=== PATIENT | female | born 1995 | race Caucasian/White ===

== ENCOUNTER 2016-09-08 21:56 | Emergency (ER) | payer BC, OTHER ==
[~2016-09-08] VITALS: Ht 167.6 cm; Wt 79.4 kg
[2016-09-08 22:02] VITALS: TEMP 36.9; Ht 167.6 cm; Wt 79.4 kg
[2016-09-08] MEDS ORDERED: XYLOCAINE 1%/SOD BICARB 20 ML VIAL INFIL ONE (22:15)
[2016-09-08] MEDS ORDERED: CITA20TA9 PO (22:34)
[2016-09-08] MEDS ORDERED: BSP15 PO (22:34)
--- NOTE | 2016-09-08 22:50 | EMERGENCY ROOM VISIT NOTE ---
History First contact with patient: 22:04 Chief Complaint: HAND PAIN/INJURY Stated Complaint: CUT History of Present Illness The patient is a 20 year old female who presents to the Emergency Room with complaints of a left palm laceration after accidentally stabbing her hand with a clean kitchen knife. The patient reports that she just cleaning dishes when this happened. She denies any active bleeding. She does report mild paresthesias of the index and long finger. She also reports that fat is now sticking out of the wound. The patient is [id number]. She rates her discomfort a 7 out of 10. Tetanus immunization is up-to-date. Review of Systems 6 system review was performed and was negative except for pertinent positives and negatives as indicated in history of present illness Past Medical/Surgical History Medical Problems: (1) No significant past medical history Surgical Problems: (1) No history of previous surgery Family History Unremarkable Social History Smoking Status: Never Smoker Alcohol Use: none Marital Status: single Occupation Status: [employer] student Current/Historical Medications Scheduled Buspirone HCl (Buspirone HCl), 15 MG PO BID Citalopram Hydrobromide (Celexa), 20 MG PO QAM Allergies Coded Allergies: No Known Allergies (Unverified , 09/08/16) Physical Exam Vital Signs Date Time Temp Pulse Resp B/P Pulse Ox O2 Delivery O2 Flow Rate FiO2 09/08/16 22:02 36.9 78 16 107/70 97 Room Air Physical Exam CONSTITUTIONAL: Healthy and well nourished. Alert and oriented X 3 with positive affect. HEENT: Normocephalic, atraumatic. Pupils equal, round and reactive. NECK: Full active range of motion without discomfort. MUSCULOSKELETAL: Examination of the left hand shows a 1 cm palmar laceration without active bleeding. There is no underlying edema or ecchymosis. The patient does have mild fat extrusion from the wound. The patient is able to flex and extend the index and long finger without discomfort. Capillary refill is less than 2 seconds. INTEGUMENTARY: No rash or other significant dermatologic conditions noted. NEUROLOGIC: Left hand and fingers are sensory intact. Medical Decision & Procedures Medications Administered Medications (Trade) Dose Ordered Sig/Gale Route Start Time Stop Time Status Last Admin Dose Admin Lidocaine HCl (Buffered Lidocaine 1% Inj) 20 ml ONE ONCE INFIL 09/08/16 22:15 09/08/16 22:16 DC 09/08/16 22:13 20 ML Procedure Laceration repair was performed under local anesthesia after receiving verbal consent from the patient. Using buffered 1% lidocaine without epinephrine, good local anesthesia was administered. The wound was then peripherally cleansed with iodine, then irrigated with normal saline. The wound was then approximated using 5-0 nylon simple interrupted sutures 3. Bacitracin dressing was applied. ED Course Patient history and physical exam were performed. Nurse's notes were reviewed. Laceration repair was performed under local anesthesia. The patient was provided additional verbal and written wound care instructions. Ice and elevation for swelling. Ibuprofen and Tylenol as needed for pain. Suture removal in 12-14 days, or seek reevaluation sooner for any signs of wound infection. The patient was happy with plan of care, and denied any pain at the time of discharge. Medical Decision Impression Primary Impression: Laceration of left palm Departure Information Referrals No Doctor, Assigned (PCP) Patient Instructions [facility] Problem Qualifiers Primary Impression: Laceration of left palm Encounter type: initial encounter Qualified Codes: S61.412A - Laceration without foreign body of left hand, initial encounter
[2016-09-08 22:54] VITALS: BP 112/76; PULSE 78; O2SAT 97
== END 2016-09-08 22:56 | disposition home or self-care (01) ==
LOC: C.EDB 22:00 → C.EDC 22:56
DX: S61.412A Laceration without foreign body of left hand, initial encounter (principal); W26.0XXA Contact with knife, initial encounter; Z79.899 Other long term (current) drug therapy

== ENCOUNTER 2016-11-05 23:39 | Emergency (ER) | payer BC, OTHER ==
[~2016-11-05] VITALS: Ht 167.6 cm; Wt 80.6 kg
[~2016-11-05 23:39] MED LIST: BSP15 PO; CITA20TA9 PO
[2016-11-05 23:47] VITALS: Ht 167.6 cm; Wt 80.6 kg
[2016-11-06] MEDS ORDERED: TROLAMINE SALICYLATE 10% CRM 255 APPLN/85 GM TUBE EXT STA (00:04)
[2016-11-06] MEDS ORDERED: DIAZEPAM 5MG TAB PO STA (00:04)
[2016-11-06] MEDS ORDERED: OXYCODONE IR HOME PACK PO ONE (00:15)
[2016-11-06] MEDS ORDERED: DIAZ-165 PO (00:26)
[2016-11-06] MEDS ORDERED: OXYC1TAB3 PO ×2 (00:26→00:29)
[2016-11-06] MEDS ORDERED: BACL1TAB PO (00:29)
[2016-11-06 00:54] VITALS: BP 110/71; PULSE 78; TEMP 36.7; O2SAT 97
--- NOTE | 2016-11-06 02:39 | EMERGENCY ROOM VISIT NOTE ---
History First contact with patient: 23:57 Chief Complaint: NECK PAIN Stated Complaint: NECK PAIN History of Present Illness The patient is a 21 year old female who presents to the Emergency Room with complaints of left-sided neck pain for the past few hours shortly after waking up from a nap. Patient states whenever she attempts to move her neck she has a fair amount of pain. She describes the pain aching, ranging in severity 7 out of 10. Movement makes it worse and nothing makes it better. No injury to the area. Patient denies radiating pain, headache, numbness, tingling, chest pain, dyspnea, redness, swelling, abdominal pain or any other medical complaints. Review of Systems See HPI for pertinent positives & negatives. A total of 10 systems reviewed and were otherwise negative. Past Medical/Surgical History Medical Problems: (1) No significant past medical history Surgical Problems: (1) No history of previous surgery Social History Smoking Status: Never Smoker Alcohol Use: none Marital Status: single Occupation Status: [employer] student Current/Historical Medications Scheduled Baclofen (Lioresal), 1 TAB PO Q8 Buspirone HCl (Buspirone HCl), 15 MG PO BID Citalopram Hydrobromide (Celexa), 20 MG PO QAM Scheduled PRN Oxycodone Immediate Rel Tab (Roxicodone Ir), 1-2 TAB PO Q4H PRN for Severe Pain Allergies Coded Allergies: No Known Allergies (Unverified , 11/06/16) Physical Exam Vital Signs Date Time Temp Pulse Resp B/P Pulse Ox O2 Delivery O2 Flow Rate FiO2 11/06/16 00:54 36.7 78 18 110/71 97 11/05/16 23:47 36.7 73 18 101/67 96 Room Air Pain Rating (0-10): 5.0 Physical Exam VITALS: Vitals are noted on the nurse's note and reviewed by myself. Vital signs stable. GENERAL: Pleasant female with her head slightly tilted to the right and chin pointing to the right concerning for torticollis, in no acute distress, nondiaphoretic, well-developed well-nourished. SKIN: Capillary reflex less than 2 seconds. HEENT: Normocephalic. PERRLA. EOMI. Nares patent. Mucous membranes moist. Neck is supple without nuchal rigidity. Left lateral neck over the sternocleidomastoid muscle tender to palpation easily reproducing symptoms. No C-spine tenderness. HEART: Regular rate and rhythm without murmurs gallops or rubs. LUNGS: Clear to auscultation bilaterally without wheezes, rales or rhonchi. No retractions or accessory muscle use. MUSCULOSKELETAL: No gross musculoskeletal defects. No pedal edema. No calf tenderness. NEURO: Patient was alert and oriented to person place and time. Normal sensation to light and sharp touch. No focal neurological deficits. Medical Decision & Procedures Medications Administered Medications (Trade) Dose Ordered Sig/Gale Route Start Time Stop Time Status Last Admin Dose Admin Diazepam (Valium Tab) 5 mg NOW STAT PO 11/06/16 00:04 11/06/16 00:06 DC 11/06/16 00:20 5 MG Oxycodone HCl (Roxicodone Immediate Rel 5MG Home Pack) 1 homepack UD ONCE PO 11/06/16 00:15 11/06/16 00:16 DC 11/06/16 00:50 1 HOMEPACK Trolamine Salicylate (Myoflex Cream) 1 appln NOW STAT EXT 11/06/16 00:04 11/06/16 00:06 DC 11/06/16 00:50 1 APPLN ED Course Prior records/ancillary studies reviewed. Triage Nursing notes reviewed. The patient's history was concerning for neck pain. Differential diagnosis: Etiologies such as torticollis, musculoskeletal, disc herniation, fracture, metastatic disease, discitis, infection as well as others were entertained. Physical findings: As above. No focal neurologic findings noted. ER treatment provided: Valium, OxyIR On reassessment the patient felt better. Diagnostics interpreted by me: Deferred This appears to be consistent with torticollis. Patient was neurovascularly and neurologically intact. She is advised take anti-inflammatories around the clock and to try to stretch the area out. She is advised take baclofen for muscle relaxant and OxyIR as needed for severe pain but no alcohol or driving on this medication. Patient had no C-spine tenderness on exam. No injury. She was well-appearing. Patient was advised follow-up health services in a few days or here in the ER sooner for severe pain, numbness, tingling, worsening signs or symptoms or as needed. The patient's physical examination and detailed history did not reveal any red flags for back pain such as those listed in the differential diagnosis. Therefore advanced diagnostics and consultations were felt to be unwarranted. By the evaluation outlined above emergent etiologies such as fracture, metastatic disease, infection, as well as others were deemed relatively unlikely. The pt informed about the findings as listed above. All questions were answered and pleased with the treatment. Return instructions were outlined and the patient was discharged in stable condition. Outpatient prescription management: Baclofen, OxyIR Oxy IR 5mg 1-2 po Q4 hrs prn Referral: The patient was referred back to primary care physician for follow-up in 2 to 3 days for a recheck of the current condition. Medical Decision As above Impression Primary Impression: Torticollis, acute Departure Information Dispostion Home / Self-Care Condition GOOD Prescriptions Oxycodone Immediate Rel Tab (ROXICODONE IR) 5 Mg Tab 1-2 TAB PO Q4H Y for Severe Pain, #15 TAB Prov: Jodi Mendiola .CLARA 11/06/16 Baclofen (LIORESAL) 10 Mg Tab 1 TAB PO Q8, #20 TAB Prov: Jodi Mendiola PA-C 11/06/16 Forms WORK / SCHOOL INSTRUCTIONS, HOME CARE DOCUMENTATION FORM, IMPORTANT VISIT INFORMATION Patient Instructions [facility], [facility] Additional Instructions DO NOT drive, drink alcohol, operate machinery, or perform dangerous activities today. You were given medications in the ER that can affect your ability to safely function or operate a vehicle. Baclofen 10 m tablet every 8 hours as needed for muscle tightness. Use Myoflex cream 3 times a day to the affected area. Oxycodone (OxyIR) 5mg: Take 1-2 pills every four hours for breakthrough pain. Avoid alcohol, operating machinery or dangerous equipment, working on ladders or roofs, DRIVING, or situations where being under the influence may be dangerous. It is recommended to use an svno-coi-gyweavo stool softener such as Colace, 100mg twice daily while taking this medication to avoid constipation. Ibuprofen(Motrin, Advil) may be used for fever or pain. Use 600mg every six hours as needed. Take with food. Avoid using more than 2400mg in a 24 hour period. Do not use 2400mg per day for more than three consecutive days without physician direction. Prolonged inappropriate use can lead to stomach upset or ulcers. This medication can be taken if you need to drive, work, or perform activities which may be dangerous when taking narcotic pain medication. (AND/OR) Acetaminophen(Tylenol) may be used for fever or pain. Use 1000mg every six hours as needed. Avoid using more than 3000mg in a 24 hour period. This medication can be taken if you need to drive, work, or perform activities which may be dangerous when taking narcotic pain medication. Rest and avoid heavy lifting until your symptoms resolve and then gradually return to full activity. A good rule of thumb is if it hurts your neck to perform a certain activity, then it should be avoided until you are healthy again. Stretch your neck out. A heating pad, warm compresses, or a hot shower may help with tight muscles and can be done several times a day as needed. Continue current medications. Return to the ER immediately for any numbness, tingling, severe pain, loss of control of your bowels or bladder, inability to walk, or as needed. Follow up with your primary care physician within 3-5 days for a recheck of your current condition.
== END 2016-11-06 00:58 | disposition home or self-care (01) ==
LOC: C.EDB 23:40 → C.EDA 11-06 00:58
DX: M43.6 Torticollis (principal)